=== PATIENT | female | born 1995 | race Caucasian/White ===

== ENCOUNTER 2017-08-14 15:35 | Emergency (ER) | payer BC ==
[2017-08-14 15:47] VITALS: BP 163/97
--- NOTE | 2017-08-14 16:02 | UC ---
Lower Extremity/Ankle HPI - HPI Summary HPI Summary: 22 y/o female presents to the urgent care accompany by mother c/o Bilateral feet swelling for five days. Pt reports the same happened 2 months ago and the swelling resolved after 2 days. Now it is taking longer. Pt states she recently moved from [place] and she has noticed that after she walks her dog or stays long periods of time sitting her feet become swollen. Pt denies any pain, calf pain, SOB, chest pain, numbness or tingling sensation over the feet, abdominal pain, N/V/D. Mother reports Pt has an appt w/ her new PCP on 09/15/2017. She called him today to get a sooner appt due to her daughter's symptoms and he told her to come here to the urgent care. Mother states FMHX of HTN. - History of Current Complaint Chief Complaint: UCLowerExtremity Stated Complaint: FOOT SWELLING Time Seen by Provider: 08/14/17 16:01 Hx Obtained From: Patient, Family/Employee Health Rn - mother Hx Last Menstrual Period: 07/30/17 ?: No Onset/Duration: Gradual Onset, Lasting Days - 5 days, Still Present Severity Initially: Mild Severity Currently: Moderate Pain Intensity: 0 Pain Scale Used: 0-10 Numeric Aggravating Factor(s): Standing, Ambulation Alleviating Factor(s): Elevation Able to Bear Weight: Yes - Risk Factors Gout Risk Factors: Negative DVT Risk Factors: Negative Septic Arthritis Risk Factor: Negative - Allergies/Home Medications Allergies/Adverse Reactions: Allergies Allergy/AdvReac Type Severity Reaction Status Date / Time amoxicillin Allergy Hives Verified 08/14/17 15:48 latex Allergy See Comment Verified 08/14/17 15:48 Home Medications: Home Medications Etonogestrel [Nexplanon] 68 mg 08/14/17 [History] PMH/Surg Hx/FS Hx/Imm Hx Previously Healthy: Yes - Mother denies PMHX - Surgical History Surgical History: None - Family History Known Family History: Positive: Cardiac Disease, Hypertension, Diabetes - Social History Occupation: Student Lives: With Family Alcohol Use: Occasionally Substance Use Type: Marijuana Substance Use Comment - Amount & Last Used: daily Smoking Status (MU): Never Smoked Tobacco - Immunization History Vaccination Up to Date: Yes Review of Systems Constitutional: Negative Skin: Other - B/L feet swelling Eyes: Negative ENT: Negative Respiratory: Negative Cardiovascular: Negative Gastrointestinal: Negative Genitourinary: Negative Motor: Negative Neurovascular: Negative Musculoskeletal: Negative Neurological: Negative Psychological: Negative Is Patient Immunocompromised?: No All Other Systems Reviewed And Are Negative: Yes Physical Exam - Summary Physical Exam Summary: Vital Signs Reviewed: Yes General : well developed, well nourished morbid obese female sitting comfortably on the examining table w/o any apparent distress Eyes: Positive: Conjunctiva Clear - PERRLA, EOMI ENT: Positive: Normal ENT inspection, Hearing grossly normal, Pharynx normal, TMs normal Neck: Positive: Supple, Nontender, No Lymphadenopathy Respiratory: Positive: Chest non-tender, Lungs clear, Normal breath sounds, No respiratory distress Cardiovascular: Positive: RRR, No Murmur, Pulses Normal Abdomen Description: Positive: Nontender, No Organomegaly, Soft. Negative: CVA Tenderness (R), CVA Tenderness (L) Bowel Sounds: Positive: Present Musculoskeletal: Positive: Strength Intact, ROM Intact, mild feet edema B/L 1+ , Pt is able to bear weight but ambulate w/o any difficulty. B/L feet :No surface trauma, ecchymosis, erythema, lesions, ulcers or break in skin integrity. no deformity observed, No bony step-off, No tenderness to palpation over toes, No tender of mid or hindfeet, FROM of all lower extremities. Distal motor and neurovascular status are intac Negative hommans' s signs,Soft tissues of posterior lower legs are soft, supple, nontender and no palpable cords or evidence of thrombophlebitis. Neurological Exam: Normal Psychological Exam: Normal Skin Exam: Normal Triage Information Reviewed: Yes Vital Signs: Initial Vital Signs Temp 98.1 F 08/14/17 15:41 Pulse 86 08/14/17 15:41 Resp 18 08/14/17 15:41 BP 163/97 08/14/17 15:41 Pulse Ox 100 08/14/17 15:41 Lower Extremity Course/Dx - Course Course Of Treatment: 22 y/o female presents to the urgent care accompany by mother c/o Bilateral feet swelling for five days. Pt reports the same happened 2 months ago and the swelling resolved after 2 days. Now it is taking longer. Pt states she recently moved from [place] and she has noticed that after she walks her dog or stays long periods of time sitting her feet become swollen. Pt denies any pain, calf pain, SOB, chest pain, numbness or tingling sensation over the feet, abdominal pain, N/V/D. Mother reports Pt has an appt w/ her new PCP on 09/15/2017. She called him today to get a sooner appt due to her daughter's symptoms and he told her to come here to the urgent care. Mother states FMHX of HTN. Hx obtained.Pt is morbid obese w/ a BMI:45.7kg, PE: mild B/ L feet edema on examination. Pt's BP: elevated: 167/97, Manually after 30min 157 /73 bpm. Still elevated. FMHX of HTN. Mother and Pt educated on HTN and the possibility she may be developing HTN due to her overweight. Pt advised to elevated legs, to avoid long periods of standing up, decrease salt in her diet, wear some compression stocking she has at home to decrease swelling and the Importance to monitor BP. Keep a diary and f/u w/ her new PCP as soon as possible for blood work and further management. D/c instructions explianed. Mother and Pt understood and agreed w/ D/C instructions. Pt left the clinic ambulating and hemodynamically stable. - Differential Dx/Diagnosis Differential Diagnosis/HQI/PQRI: Cellulitis, Contusion, Phlebitis, Other - HTN, edema, Provider Diagnoses: 1- B/L feet edema. 2- Elevated BP w/o Hx of HTN. 3- Obesity Discharge - Sign-Out/Discharge Documenting (check all that apply): Discharge/Admit/Transfer - Discharge Plan Condition: Stable Disposition: HOME Patient Education Materials: Leg Edema (ED), Low-Sodium Diet (ED) Referrals: Mingo Olivares MD [Primary Care Provider] - 3 Days Additional Instructions: 1- Your BP is elevated today. please decrease salt in your diet, monitor BP and if it continues to be elevated please f/u with your PCP in 1 week for further management since you need full blood work up. Elevated BP can also contribute ot B/L leg swelling. 2- Please elevated your legs and wear the compression stocking to help reduce swelling. 3- If you develop B/l leg pain, SOB, MENDOZA, dizziness please go immediately to the ER - Billing Disposition and Condition Condition: STABLE Disposition: Home
== END 2017-08-14 16:44 | disposition home or self-care (01) ==
LOC: UCEAST 15:35
DX: R60.0 Localized edema (principal); R03.0 Elevated blood-pressure reading, without diagnosis of hypertension; E66.9 Obesity, unspecified; Z88.0 Allergy status to penicillin; Z91.040 Latex allergy status; Z82.49 Family history of ischemic heart disease and other diseases of the circulatory system; Z83.3 Family history of diabetes mellitus
CPT/HCPCS: 99201; G0463

== ENCOUNTER 2017-11-09 13:16 | Emergency (ER) | payer BC ==
[2017-11-09 13:36] VITALS: BP 161/108
--- NOTE | 2017-11-09 13:38 | UC ---
Skin Complaint HPI - History of Current Complaint Chief Complaint: UCSkin Time Seen by Provider: 11/09/17 13:37 Stated Complaint: BUMP ON BACK Hx Last Menstrual Period: 07/30/17 Pain Intensity: 4 - Allergy/Home Medications Allergies/Adverse Reactions: Allergies Allergy/AdvReac Type Severity Reaction Status Date / Time latex Allergy Mild See Comment Verified 11/09/17 13:29 amoxicillin Allergy Hives Verified 11/09/17 13:29 Home Medications: Home Medications Bupropion XL* [Wellbutrin XL *] 150 mg PO DAILY 11/09/17 [History Confirmed ] PMH/Surg Hx/FS Hx/Imm Hx - Surgical History Surgical History: None - Family History Known Family History: Positive: Cardiac Disease, Hypertension, Diabetes - Social History Alcohol Use: Occasionally Substance Use Type: None Substance Use Comment - Amount & Last Used: daily Smoking Status (MU): Light Every Day Tobacco Smoker Type: Cigarettes Amount Used/How Often: 1 cigarette per day - Immunization History Vaccination Up to Date: Yes Physical Exam Vital Signs: Initial Vital Signs Temp 97.8 F 11/09/17 13:31 Pulse 100 11/09/17 13:31 Resp 16 11/09/17 13:31 BP 161/108 11/09/17 13:31 Pulse Ox 99 11/09/17 13:31 Discharge - Discharge Plan Referrals: Mingo Olivares MD [Primary Care Provider] -
--- NOTE | 2017-11-09 14:03 | UC ---
Skin Complaint HPI - HPI Summary HPI Summary: 22 yo whose mother states she has a bump on back that first appeared 5 days. patient states the bump is getting bigger and is red. She has history of insect bite allergic reactions so mother applied benadryl cream on it to no avail. Area is more indurated, denies chills or fever, she is on implanon. - History of Current Complaint Chief Complaint: UCSkin Time Seen by Provider: 11/09/17 13:37 Stated Complaint: BUMP ON BACK Hx Obtained From: Patient, Family/Straightening Press Operator Hx Last Menstrual Period: 07/30/17 ?: No Onset/Duration: Sudden Onset, Lasting Days Skin Exposure Onset/Duration: Days Ago Onset Severity: Mild Current Severity: Moderate Pain Intensity: 4 Location: Discrete Aggravating Factor(s): Nothing Alleviating Factor(s): Nothing Associated Signs & Symptoms: Positive: Negative - Allergy/Home Medications Allergies/Adverse Reactions: Allergies Allergy/AdvReac Type Severity Reaction Status Date / Time latex Allergy Mild See Comment Verified 11/09/17 13:29 amoxicillin Allergy Hives Verified 11/09/17 13:29 Home Medications: Home Medications Bupropion XL* [Wellbutrin XL *] 150 mg PO DAILY 11/09/17 [History Confirmed ] Review of Systems Constitutional: Negative Skin: Rash All Other Systems Reviewed And Are Negative: Yes PMH/Surg Hx/FS Hx/Imm Hx Previously Healthy: Yes Psychological History: Depression - Surgical History Surgical History: None - Family History Known Family History: Positive: Cardiac Disease, Hypertension, Diabetes - Social History Alcohol Use: Occasionally Substance Use Type: None Substance Use Comment - Amount & Last Used: daily Smoking Status (MU): Light Every Day Tobacco Smoker Type: Cigarettes Amount Used/How Often: 1 cigarette per day - Immunization History Vaccination Up to Date: Yes Physical Exam Triage Information Reviewed: Yes Appearance: Well-Appearing, No Pain Distress, Obese Vital Signs: Initial Vital Signs Temp 97.8 F 11/09/17 13:31 Pulse 100 11/09/17 13:31 Resp 16 11/09/17 13:31 BP 161/108 11/09/17 13:31 Pulse Ox 99 11/09/17 13:31 Vital Signs Reviewed: Yes Eyes: Positive: Conjunctiva Clear ENT: Positive: Hearing grossly normal Neck: Positive: Supple, Nontender Respiratory: Positive: Chest non-tender, Lungs clear Cardiovascular: Positive: RRR, No Murmur, Pulses Normal, Brisk Capillary Refill Abdomen Description: Positive: Nontender Bowel Sounds: Positive: Present Musculoskeletal: Positive: Strength Intact, ROM Intact Skin: Positive: rashes - left shoulder area of erythema and induration without fluctuation Course/Dx - Course Course Of Treatment: patient has cellulitis on left shoulder start bactrim as prescribed and f/u with PCP for BP elevation in a week - Diagnoses Provider Diagnoses: elevated BP without history of HTN. Cellulitis of left shoulder Discharge - Sign-Out/Discharge Documenting (check all that apply): Patient Departure All imaging exams completed and their final reports reviewed: No Studies - Discharge Plan Condition: Stable Disposition: HOME Patient Education Materials: Sulfamethoxazole/Trimethoprim (By mouth), Cellulitis (ED) Referrals: Mingo Olivares MD [Primary Care Provider] - Additional Instructions: please follow up with your primary care for monitoring of elevation in blood pressure take antibiotics as prescribed and complete full course - Billing Disposition and Condition Condition: STABLE Disposition: Home
== END 2017-11-09 14:18 | disposition home or self-care (01) ==
LOC: UCEAST 13:16
DX: L03.114 Cellulitis of left upper limb (principal); R03.0 Elevated blood-pressure reading, without diagnosis of hypertension; F32.9 Major depressive disorder, single episode, unspecified; Z88.0 Allergy status to penicillin; Z91.040 Latex allergy status; F17.210 Nicotine dependence, cigarettes, uncomplicated
CPT/HCPCS: 99212; G0463